=== PATIENT | female | born 1995 | race Caucasian/White ===

== ENCOUNTER 2020-03-30 04:25 | Emergency (ER) | payer OTHER, SELFPAY ==
--- NOTE | 2020-03-30 | ECG_ITS ---
Test Reason : CHEST PAIN Blood Pressure : / mmHG Vent. Rate : 097 BPM Atrial Rate : 097 BPM P-R Int : 130 ms QRS Dur : 092 ms QT Int : 356 ms P-R-T Axes : 081 086 045 degrees QTc Int : 452 ms Normal sinus rhythm Normal ECG No previous ECGs available Referred By: Viki Pascual Electronically Signed By:Mckay Loja
[2020-03-30 04:51] VITALS: BP 132/64; PULSE 87; RESP 15; TEMP 36.6; O2SAT 100
--- NOTE | 2020-03-30 04:56 | XR_ITS ---
EXAMINATION: XR CHEST CLINICAL INFORMATION: Chest pain COMPARISON: None TECHNIQUE: Frontal view of the chest was obtained. FINDINGS: The lungs are clear with no focal consolidation. No evidence of pneumothorax, pulmonary edema, or pleural effusions. The cardiomediastinal silhouette is unremarkable. No acute osseous findings. XR/XR chest 1V IMPRESSION: No acute cardiopulmonary findings.
--- NOTE | 2020-03-30 04:57 | ED.ABDPAIN ---
HPI - Abdominal Pain General Chief Complaint: Nausea/Vomiting/Diarrhea Stated Complaint: Chest pain/Vomiting Time Seen by Provider: 03/30/20 04:40 Source: patient Mode of arrival: ambulatory Limitations: no limitations History of Present Illness HPI narrative: 25 yo female with GERD - here with epigastric pain and burning into her chest with n/v states she has these episodes in the past with her GERD symptoms MD elicited complaint: abdominal pain Pertinent past history: gastritis Onset (ago): day(s) (2) Pain Consistency: constant Location: epigastric Severity: moderate Quality: burning Radiation: chest Migration to: no migration Exacerbating factors: eating Relieving factors: nothing Context: history of similar episodes Associated symptoms: nausea and vomiting Related Data Previous Rx's Medication Instructions Recorded ondansetron 4 mg PO Q8H PRN #20 tab 03/30/20 Allergies Allergy/AdvReac Type Severity Reaction Status Date / Time No Known Allergies Allergy Unverified 11/23/19 18:59 [No Known Allergies*] Review of Systems Review of Systems Constitutional : No Weight loss, No Fever, No Chills ENT/Mouth : No sore throat, No Rhinorrhea Eyes: No Swelling, No Redness Cardiovascular : No Chest Pain, No SOB, NoEdema Respiratory : No Cough, No Sputum, No Wheezing Gastrointestinal : Positive Nausea, Positive Vomiting, no Diarrhea, positive abdominal Pain, No Hematochezia, No Melena Genitourinary : No Dysuria, No Urinary Frequency, No Hematuria, No Urgency Musculoskeletal : No joint pain, No Myalgias, No Joint Swelling Skin : No Skin Lesions, No rash Neuro : No Weakness, No Numbness, No Dizziness, No Headache Psych : No Anxiety/Panic, No Depression Heme/Lymph: No Bruising, No Lymphadenopathy Endocrine : No Polyuria, No Polydipsia All other systems reviewed and are negative. Physical Exam Vital Signs: Vital Signs: Last Vital Signs Temp 97.9 F 03/30/20 04:51 Pulse 87 03/30/20 04:51 Resp 15 03/30/20 04:51 BP 132/64 03/30/20 04:51 Pulse Ox 100 03/30/20 04:51 Body Mass Index 20.0 Appearance: Alert. Oriented X3. No acute distress. Eyes: Pupils equal, round and reactive to light. ENT: Pharynx normal. Neck: Normal inspection. Neck supple. CVS: Normal heart rate and rhythm. Pulses normal. Respiratory: No respiratory distress. Breath sounds normal. Abdomen: Soft and mild epigastric ttp Skin: Skin warm and dry. Normal skin color. Normal skin turgor. Extremities: No lower extremity edema. No calf ttp Neuro: Oriented X 3. No motor deficit. No sensory deficit. Course Course Course Narrative: negative workup, feels better, able to tolerate PO, stable for DC MDM - Abdominal Pain MDM Narrative Medical decision making narrative: 25 yo female with two days of acid reflux burning in epigastric area and n/v states she suffers from GERD and has had these symptoms in the past, at this time will need labs, GI cocktail, cxr, EKG - troponin x 1, seems GI related low susp for ACS/PE Lab Data Result diagrams: 03/30/20 05:08 03/30/20 05:08 Labs: Lab Results 03/30/20 03/30/20 03/30/20 Range/Units 05:08 05:08 05:08 WBC 7.9 (4.8-10.8) X10*3/uL RBC 4.45 (4.20-5.50) X10*6/uL Hgb 13.7 (12.0-16.0) g/dl Hct 40.1 (37-47) % MCV 90.1 (80-98) fL MCH 30.8 (27.0-33.0) pg MCHC 34.2 (31.0-35.0) g/dl RDW 11.7 (11.0-16.0) % Plt Count 272 (160-400) X10*3/uL MPV 9.5 (9.4-12.3) fL Immature Gran % (Auto) 0.1 (0.0-0.4) % Neut % (Auto) 57.7 (45-73) % Lymph % (Auto) 33.3 (20-40) % [place] % (Auto) 8.2 (2-11) % Eos % (Auto) 0.3 (0-4) % Baso % (Auto) 0.4 (0-2) % Lymph # (Auto) 2.6 (1.2-4.9) X10*3/uL [place] # (Auto) 0.7 (0.1-1.2) X10*3/uL Eos # (Auto) 0.0 (0.0-0.4) X10*3/uL Baso # (Auto) 0.0 (0.0-0.2) X10*3/uL Abs Immat Gran (auto) 0.01 (0.00-0.03) X10*3/uL Absolute Neuts (auto) 4.6 (2.0-8.3) X10*3/uL Absolute Nucleated RBC 0.000 (0.0-0.012) X10*3/uL Nucleated RBC % (auto) 0.0 (0.0-0.2) /100WBC Hold Blue Top SEE NOTE Sodium 138 (135-145) mmol/L Potassium 3.8 (3.3-5.1) mmol/l Chloride 105 (96-108) mmol/L Carbon Dioxide 21 L (22-29) mmol/L Anion Gap 16 (12-20) BUN 9 (9-16) mg/dL Creatinine 0.67 (0.5-1.4) mg/dL Estim Creat Clear Calc 118.7 Estimated GFR > 60 Random Glucose 117 H (60-115) mg/dL Calcium 9.4 (8.4-10.2) mg/dL Magnesium 2.0 (1.6-2.6) mg/dL Total Bilirubin 0.6 (0.0-1.0) mg/dL Direct Bilirubin 0.3 (0.0-0.5) mg/dL AST 15 (5-31) U/L ALT 11 (0-31) U/L Alkaline Phosphatase 78 (39-117) U/L Troponin I High Sens (<3.5-17.0) ng/L Total Protein 8.0 (6.5-8.0) g/dL Albumin 4.6 (3.5-5.0) g/dL Lipase 25 (8-78) U/L Urine Color Urine Appearance Urine pH (5.0-8.0) Ur Specific [place] (1.005-1.025) Urine Protein (NEG-TRACE) MG/DL Urine Glucose (UA) (NEG) MG/DL Urine Ketones (NEG) MG/DL Urine Blood (NEG) Urine Nitrite (NEG) Ur Leukocyte Esterase (NEG) Urine Test (NEGATIVE) 03/30/20 03/30/20 Range/Units 05:08 05:08 WBC (4.8-10.8) X10*3/uL RBC (4.20-5.50) X10*6/uL Hgb (12.0-16.0) g/dl Hct (37-47) % MCV (80-98) fL MCH (27.0-33.0) pg MCHC (31.0-35.0) g/dl RDW (11.0-16.0) % Plt Count (160-400) X10*3/uL MPV (9.4-12.3) fL Immature Gran % (Auto) (0.0-0.4) % Neut % (Auto) (45-73) % Lymph % (Auto) (20-40) % [place] % (Auto) (2-11) % Eos % (Auto) (0-4) % Baso % (Auto) (0-2) % Lymph # (Auto) (1.2-4.9) X10*3/uL [place] # (Auto) (0.1-1.2) X10*3/uL Eos # (Auto) (0.0-0.4) X10*3/uL Baso # (Auto) (0.0-0.2) X10*3/uL Abs Immat Gran (auto) (0.00-0.03) X10*3/uL Absolute Neuts (auto) (2.0-8.3) X10*3/uL Absolute Nucleated RBC (0.0-0.012) X10*3/uL Nucleated RBC % (auto) (0.0-0.2) /100WBC Hold Blue Top Sodium (135-145) mmol/L Potassium (3.3-5.1) mmol/l Chloride (96-108) mmol/L Carbon Dioxide (22-29) mmol/L Anion Gap (12-20) BUN (9-16) mg/dL Creatinine (0.5-1.4) mg/dL Estim Creat Clear Calc Estimated GFR Random Glucose (60-115) mg/dL Calcium (8.4-10.2) mg/dL Magnesium (1.6-2.6) mg/dL Total Bilirubin (0.0-1.0) mg/dL Direct Bilirubin (0.0-0.5) mg/dL AST (5-31) U/L ALT (0-31) U/L Alkaline Phosphatase (39-117) U/L Troponin I High Sens < 3.5 (<3.5-17.0) ng/L Total Protein (6.5-8.0) g/dL Albumin (3.5-5.0) g/dL Lipase (8-78) U/L Urine Color YELLOW Urine Appearance CLEAR Urine pH 8.5 H (5.0-8.0) Ur Specific [place] 1.015 (1.005-1.025) Urine Protein NEG (NEG-TRACE) MG/DL Urine Glucose (UA) NEG (NEG) MG/DL Urine Ketones 40 (NEG) MG/DL Urine Blood NEG (NEG) Urine Nitrite NEG (NEG) Ur Leukocyte Esterase NEG (NEG) Urine Test NEGATIVE (NEGATIVE) ECG Data Attestation: I personally reviewed and interpreted this ECG as follows: ECG interpretation date: 03/30/20 ECG interpretation time: 04:58 Interpretation: Rate: 97 Rhythm: NSR [place]: normal Normal P waves. Normal JOSH. Normal QRS complex. ST T wave : normal no ADAM qTC: normal prior studies: no acute ischemia The study has been interpreted contemporaneously by me. . Discharge Plan Discharge Clinical Impression: Chronic GERD Gastritis Qualifiers: Gastritis type: unspecified gastritis Chronicity: acute Gastritis bleeding: without bleeding Qualified Code(s): K29.00 - Acute gastritis without bleeding Patient Disposition: Home, Self-Care Instructions: Gastritis (ED) Additional Instructions: return to ED for any worsening symptoms or concerns Prescriptions: New ondansetron 4 mg tablet,disintegrating 4 mg PO Q8H PRN (Reason: nausea and vomiting) Qty: 20 RF: 0 Referrals: Physician,Unknown [Primary Care Provider] - 3 days (if not better) Stand Alone Forms: Work/School Release Interventions: ED Discharge Assessment Last Done: 03/30/20 06:03 Print Language: Kinyarwanda [facility] Past Medical History Medical History (Updated 03/30/20 @ 05:57 by Viki Pascual DO) GERD (gastroesophageal reflux disease) No known health problems Surgical History No history of previous surgery Social History Social History Smoking Status: Never smoker Use of substances other than those prescribed or required for medical reasons: No Advance Directives: No Advance Directives Information Provided: No
[2020-03-30 05:14] LABS: Basophils Percent Auto 0.4 % (0-2); Eosinophils Percent Auto 0.3 % (0-4); Hematocrit 40.1 % (37-47); Hemoglobin 13.7 g/dl (12.0-16.0); Imm Gran Abs Auto 0.01 X10*3/uL (0.00-0.03); Imm Gran Pct Auto 0.1 % (0.0-0.4); Lymphocytes Absolute Auto 2.6 X10*3/uL (1.2-4.9); Lymphocytes Percent Auto 33.3 % (20-40); Mean Corpuscular HGB Conc 34.2 g/dl (31.0-35.0); Mean Corpuscular Hemoglobin 30.8 pg (27.0-33.0); Mean Corpuscular Volume 90.1 fL (80-98); Mean Platelet Volume 9.5 fL (9.4-12.3); Monocytes Absolute Auto 0.7 X10*3/uL (0.1-1.2); Monocytes Percent Auto 8.2 % (2-11); Neutrophils Absolute Auto 4.6 X10*3/uL (2.0-8.3); Neutrophils Percent Auto 57.7 % (45-73); Platelet Count 272 X10*3/uL (160-400); Red Blood Count 4.45 X10*6/uL (4.20-5.50); Red Cell Distribution Width 11.7 % (11.0-16.0); White Blood Count 7.9 X10*3/uL (4.8-10.8)
[2020-03-30 05:15] LABS: MANUAL DIFF FLAG NO
[2020-03-30 05:16] LABS: Appearance Urine CLEAR; Color Urine YELLOW; Glucose Urine UA NEG (NEG); Leukocyte Esterase Urine NEG (NEG); Nitrite Urine NEG (NEG); PH 8.5 (5.0-8.0); Specific Gravity - Urine 1.015 (1.005-1.025); UACC Culture Trigger NO; Urine Blood NEG (NEG); Urine Ketones 40 MG/DL (NEG); Urine Protein NEG (NEG-TRACE)
[2020-03-30 05:18] LABS: UPreg QC Valid YES; Urine Pregnancy NEGATIVE (NEGATIVE)
[2020-03-30] MEDS: Magnesium Hydrox/Alum Hydrox 30 ML ORAL.SUSP PO (05:30)
[2020-03-30] MEDS: Lidocaine HCl Viscous 2 % 15 ML SOLUTION MUCOUS MEM (05:30)
[2020-03-30 05:49] LABS: Alanine Aminotransferase 11 U/L (0-31); Albumin Level 4.6 g/dL (3.5-5.0); Alkaline Phosphatase 78 U/L (39-117); Anion Gap 16 (12-20); Aspartate Amino Transferase 15 U/L (5-31); Bilirubin Direct 0.3 mg/dL (0.0-0.5); Bilirubin Total 0.6 mg/dL (0.0-1.0); Blood Urea Nitrogen 9 mg/dL (9-16); Calcium 9.4 mg/dL (8.4-10.2); Carbon Dioxide 21 mmol/L (22-29); Chloride 105 mmol/L (96-108); Creatinine Clr Calc Pharmacy 118.7; Estimated Glomerular Filt Rate > 60; Glucose Random 117 mg/dL (60-115); Lipase 25 U/L (8-78); Potassium 3.8 mmol/l (3.3-5.1); Sodium 138 mmol/L (135-145)
[2020-03-30 05:53] LABS: Troponin-I High Sensitivity < 3.5 ng/L (<3.5-17.0)
== END 2020-03-30 06:18 | disposition home or self-care (01) ==
PROVIDERS: Emergency Provider Emergency Medicine
DX: K21.9 Gastro-esophageal reflux disease without esophagitis (principal); R10.13 Epigastric pain; R11.2 Nausea with vomiting, unspecified; K29.00 Acute gastritis without bleeding; Z79.899 Other long term (current) drug therapy
CPT/HCPCS: 36415; 71045; 80048; 80076; 81003; 81025; 83690; 83735; 84484; 85025; 93005; 99284

== ENCOUNTER 2020-04-01 09:48 | Outpatient (REF) | payer OTHER, SELFPAY ==
--- NOTE | 2020-04-01 | US_ITS ---
EXAMINATION: US ABDOMEN COMPLETE CLINICAL INFORMATION: Heartburn and nausea. COMPARISON: None TECHNIQUE: Real-time imaging of the abdominal viscera. FINDINGS: PANCREAS: Normal. ABDOMINAL AORTA: The proximal, mid, and distal segments are normal in caliber. INFERIOR VENA CAVA: Visualized portions are normal. LIVER: Normal. The liver is normal in size. The liver contour is normal. Parenchymal echogenicity is normal. No focal hepatic lesion. There is no intrahepatic biliary duct dilatation seen. GALLBLADDER: Normal. The gallbladder is physiologically distended without evidence of stones, sludge, polyps, wall thickening or pericholecystic fluid. COMMON BILE DUCT: Normal in caliber measuring 0.5 cm in diameter. RIGHT KIDNEY: Normal. No hydronephrosis. No renal calculi or focal parenchymal lesions. The kidney measures 10.7 cm in maximum dimension. LEFT KIDNEY: Normal. No hydronephrosis. No renal calculi or focal parenchymal lesions. The kidney measures 11.7 cm in maximum dimension. SPLEEN: Normal. The spleen measures 9.5 cm in maximum dimension. FREE FLUID: None. US/US abdomen complete IMPRESSION: Normal abdominal ultrasound.
== END 2020-04-01 09:49 | disposition home or self-care (01) ==
LOC: HO.US 09:48
PROVIDERS: PCP Internal Medicine Geriatric Medicine; Visit Provider Internal Medicine Geriatric Medicine
DX: R12 Heartburn (principal)
CPT/HCPCS: 76700

== ENCOUNTER 2020-04-25 12:48 | Outpatient (REF) | payer OTHER, SELFPAY ==
--- NOTE | ~2020-04-25 | US_ITS ---
EXAMINATION: US DIAGNOSTIC ULTRASOUND BREAST, RIGHT CLINICAL INFORMATION: 25-year-old with right breast pain outer aspect. No palpable mass. Not breast-feeding approximately 1 year ago. No known family history breast cancer. No prior breast imaging. No spontaneous nipple discharge. COMPARISON: None. TECHNIQUE: Ultrasound right breast is targeted to the area of clinical concern 8:00 through 11:00 position. Grayscale imaging and color Doppler are performed without and with harmonics. FINDINGS: There is no focal suspicious finding. There is no cystic or solid mass, architectural abnormality, duct ectasia, or edema in the soft tissue planes. Results are discussed with the patient at time of visit. US/US breast RT limited IMPRESSION: Normal study. ASSESSMENT: BI-RADS 1: Negative RECOMMENDATION: Patient's breast pain should be managed based on the clinical impression.
== END 2020-04-25 12:49 | disposition home or self-care (01) ==
LOC: HO.MAMMO 12:48
PROVIDERS: PCP Internal Medicine Geriatric Medicine; Visit Provider Internal Medicine Geriatric Medicine
DX: N64.4 Mastodynia (principal)
CPT/HCPCS: 76642

== ENCOUNTER 2022-03-25 21:14 | Emergency (ER) | payer OTHER, SELFPAY ==
--- NOTE | ~2022-03-25 | US_ITS ---
EXAMINATION: US OBSTETRICAL ULTRASOUND CLINICAL INFORMATION: Abdominal pain, bleeding. COMPARISON: Pelvic ultrasound 04/06/2016. LMP: 02/14/2022. Gestational age by maternal dates is 5 weeks and 5 days. Estimated date of delivery by maternal dates is 11/21/2022. TECHNIQUE: Ultrasound of the maternal pelvis is performed using transabdominal and transvaginal transducers. Transvaginal imaging is performed due to inadequate visualization transabdominally. M-mode Doppler is also performed. FINDINGS: There is a single intrauterine gestational sac with visible yolk sac and a pole. There is no significant subchorionic hemorrhage or hematoma. CRL (crown rump length): 0.3 cm (5 weeks and 6 days +/- 4 days). (estimated date of delivery): 11/20/2022 +/- 4 days. MATERNAL ADNEXA: The right maternal ovary measures 3.8 x 2.5 x 2.1 cm. There is a simple cyst measuring 1.3 x 2 x 1.5 cm, almost certainly benign, for which no imaging follow-up is recommended. The left maternal ovary measures 2.8 x 1.8 x 1.4 cm. There is no significant maternal adnexal mass. Small amount of free fluid. US/US OB pelvic and transvaginal IMPRESSION: 1. Single intrauterine gestation with ultrasound gestational age of 5 weeks and 6 days. A heart rate is not detected, likely due to early gestation. Recommend continued follow-up and correlation with quantitative hCG to ensure viability of the . 2. Estimated date of delivery is 11/20/2022 +/- 4 days. 3. No maternal adnexal mass.
[2022-03-25 21:26] VITALS: BP 133/71; PULSE 99; RESP 18; TEMP 36.8; O2SAT 99; BMI 23.9
--- NOTE | 2022-03-25 22:35 | ED_ITS ---
HPI - Female Genitourinary General Chief complaint: Vaginal Bleeding Stated complaint: ? bleeding today and pelvic pain Time Seen by Provider: 03/25/22 22:21 Source: patient Mode of arrival: ambulatory Limitations: no limitations History of Present Illness HPI Narrative: Patient comes to the emergency room complaining of vaginal spotting. Patient states that she is . Initially, patient was being treated for control with IM medication. Then, patient decided to switch to a transdermal patch. Patient states that she did not like how she was feeling, therefore she went to her provider and requested to be placed on IM injections again. Before they gave her the dose, a test was done and it was positive. Patient states that this would be her 4th , has 1 child at home, 1st 2 pregnancies resulted in spontaneous miscarriages. Patient states that today she noticed vaginal spotting. Patient states that if she is , she would like to continue with the . Also, patient complaining of foul-smelling vaginal discharge that she noted 3-4 days ago Related Data Previous Rx's Medication Instructions Recorded ondansetron 4 mg disintegrating 4 mg PO Q8H PRN nausea and 03/30/20 tablet vomiting #20 tabs Allergies Allergy/AdvReac Type Severity Reaction Status Date / Time No Known Allergies Allergy Unverified 11/23/19 18:59 [No Known Allergies*] Review of Systems Review of Systems: Constitutional : No Weight loss, No Fever, No Chills, No Night Sweats, No Fatigue, No Malaise ENT/Mouth : No Hearing loss, No Ear Pain, No Nasal Congestion, No Sinus Pain, No Hoarseness, No sore throat, No Rhinorrhea, No Swallowing Difficulty Eyes: No Eye Pain, No Swelling, No Redness, No Foreign Body, No Discharge, No Vision Changes Cardiovascular : No Chest Pain, No SOB, No Dyspnea on Exertion, No Orthopnea, No Edema, No Palpitations Respiratory : No Cough, No Sputum, No Wheezing, No Smoke Exposure, No Dyspnea Gastrointestinal : No Nausea, No Vomiting, No Diarrhea, No Constipation, No abdominal Pain, No Hematochezia, No Melena Genitourinary : Complaining of vaginal spotting, patient had a positive test 1 week ago, complaining of foul-smelling vaginal discharge, No Dysuria, No Urinary Frequency, No Hematuria, No Urinary Incontinence, No Urgency, No Flank Pain, No Urinary Flow Changes, No Hesitancy Musculoskeletal : No joint pain, No Myalgias, No Joint Swelling Skin : No Skin Lesions, No rash Neuro : No Weakness, No Numbness, No Paresthesias, No Loss of Consciousness, No Dizziness, No Headache Psych : No Anxiety/Panic, No Depression, No SI/HI/AH/VH, No Social Issues, Heme/Lymph: No Bruising, No Bleeding,No Lymphadenopathy Endocrine : No Polyuria, No Polydipsia, No Temperature Intolerance [facility], [facility] Past Medical History Medical History GERD (gastroesophageal reflux disease) No known health problems Surgical History No history of previous surgery Social History Social History Smoked in Last 30 Days: No Use of substances other than those prescribed or required for medical reasons: No Advance Directives: No Advance Directives Information Provided: No Patient : Yes Physical Exam Vital Signs: Vital Signs: Last Vital Signs Temp 98.2 F 03/25/22 21:26 Pulse 89 03/25/22 23:36 Resp 14 03/25/22 23:36 BP 109/58 L 03/25/22 23:36 Pulse Ox 100 03/25/22 23:36 O2 Del Method 03/25/22 21:26 BMI result Body Mass Index 23.9 Const: Other: Appearance: Alert. Oriented X3. No acute distress. Eyes: Pupils equal, round and reactive to light. ENT: Pharynx normal. Neck: Normal inspection. Neck supple. No lymph nodes noted. No crepitus CVS: Normal heart rate and rhythm. Pulses normal. Normal S1 and S2 Respiratory: No respiratory distress. Breath sounds normal. No Wheezing. No rales Abdomen: Soft and nontender. No rigidity. No distention. Skin: Skin warm and dry. Normal skin color. Normal skin turgor. Extremities: No lower extremity edema. No Lacerations. No Rash Neuro: Oriented X 3. No motor deficit. No sensory deficit. Moving all ext remities. No slurred speech. CN 2 through 12 grossly intact Psych: calm, cooperative, normal affect Course Course Course Narrative: All patient's labs are pending. Depending on the hCG level, patient may need a transvaginal ultrasound. Pelvic exam pending, set up pending -patient has moderate amount of blood in the vaginal vault. -hCG positive, 2156 -blood type A positive, no RhoGAM indicated -transpelvic and transvaginal OB ultrasound pending Medical Decision Making Medical Decision Making [facility] Narrative: -ultrasound shows a single intrauterine gestation with ultrasound gestational age of 5 weeks and 6 days with no heart rate likely due to an early gestation. -patient was given an outpatient lab form to get labs on March 28, lab will be open from 07:00 to 11:00 -patient instructed to follow-up with Dr. Shaw Differential Diagnosis Differential Diagnoses: The differential diagnosis associated with the presentation includes (Is threatened , miscarriage, menstrual.) Lab Data [facility] Lab Attestation statement: I reviewed the patient's lab results. 03/25/22 22:50 03/25/22 22:50 Labs: Lab Results 03/25/22 03/25/22 03/25/22 Range/Units 22:44 22:49 22:50 WBC 7.4 (4.8-10.8) X10*3/uL RBC 4.45 (4.20-5.50) X10*6/uL Hgb 13.5 (12.0-16.0) g/dl Hct 39.5 (37.0-47.0) % MCV 88.8 (80.0-98.0) fL MCH 30.3 (27.0-33.0) pg MCHC 34.2 (31.0-35.0) g/dl RDW 12.2 (11.0-16.0) % Plt Count 248 (160-400) X10*3/uL MPV 9.6 (9.4-12.3) fL Immature Gran % (Auto) 0.3 (0.0-0.4) % Neut % (Auto) 61.5 (45-73) % Lymph % (Auto) 29.0 (20-40) % [place] % (Auto) 7.8 (2-11) % Eos % (Auto) 0.7 (0-4) % Baso % (Auto) 0.7 (0-2) % Lymph # (Auto) 2.1 (1.2-4.9) X10*3/uL [place] # (Auto) 0.6 (0.1-1.2) X10*3/uL Eos # (Auto) 0.1 (0.0-0.4) X10*3/uL Baso # (Auto) 0.1 (0.0-0.2) X10*3/uL Abs Immat Gran (auto) 0.02 (0.00-0.03) X10*3/uL Absolute Neuts (auto) 4.6 (2.0-8.3) x10*3/uL Absolute Nucleated RBC 0.000 (0.0-0.012) X10*3/uL Nucleated RBC % (auto) 0.0 (0.0-0.2) /100WBC Sodium (135-145) mmol/L Potassium (3.3-5.1) mmol/L Chloride (96-108) mmol/L Carbon Dioxide (22-29) mmol/L Anion Gap (12-20) BUN (9-16) mg/dL Creatinine (0.5-1.4) mg/dL Estim Creat Clear Calc Estimated GFR Random Glucose (60-115) mg/dL Calcium (8.4-10.2) mg/dL Total Bilirubin (0.0-1.0) mg/dL Direct Bilirubin (0.0-0.5) mg/dL AST (5-31) U/L ALT (0-31) U/L Alkaline Phosphatase (39-117) U/L Total Protein (6.5-8.0) g/dL Albumin (3.5-5.0) g/dL Beta HCG, Quant mIU/mL Urine Color Yellow Urine Appearance Cloudy Urine pH 8.0 (5.0-9.0) Ur Specific [place] 1.010 (1.005-1.025) Urine Protein Negative (Neg-Trace) mg/dL Urine Glucose (UA) Negative (Negative) mg/dL Urine Ketones 15 (Negative) mg/dL Urine Blood Large (3+) H (Negative) Urine Nitrite Negative (Negative) Ur Leukocyte Esterase Trace H (Negative) Urine RBC 0-2 (0-2) /HPF Urine WBC 6-10 H (0-5) /HPF Ur Squamous Epith Cells 6-10 (0-2) /HPF Urine Bacteria None Seen (None Seen) Hyaline Casts 0-2 (0-2) /LPF Blood Type A Positive 03/25/22 Range/Units 22:50 WBC (4.8-10.8) X10*3/uL RBC (4.20-5.50) X10*6/uL Hgb (12.0-16.0) g/dl Hct (37.0-47.0) % MCV (80.0-98.0) fL MCH (27.0-33.0) pg MCHC (31.0-35.0) g/dl RDW (11.0-16.0) % Plt Count (160-400) X10*3/uL MPV (9.4-12.3) fL Immature Gran % (Auto) (0.0-0.4) % Neut % (Auto) (45-73) % Lymph % (Auto) (20-40) % [place] % (Auto) (2-11) % Eos % (Auto) (0-4) % Baso % (Auto) (0-2) % Lymph # (Auto) (1.2-4.9) X10*3/uL [place] # (Auto) (0.1-1.2) X10*3/uL Eos # (Auto) (0.0-0.4) X10*3/uL Baso # (Auto) (0.0-0.2) X10*3/uL Abs Immat Gran (auto) (0.00-0.03) X10*3/uL Absolute Neuts (auto) (2.0-8.3) x10*3/uL Absolute Nucleated RBC (0.0-0.012) X10*3/uL Nucleated RBC % (auto) (0.0-0.2) /100WBC Sodium 138 (135-145) mmol/L Potassium 3.4 (3.3-5.1) mmol/L Chloride 107 (96-108) mmol/L Carbon Dioxide 24 (22-29) mmol/L Anion Gap 10 L (12-20) BUN 7 L (9-16) mg/dL Creatinine 0.66 (0.5-1.4) mg/dL Estim Creat Clear Calc 106.8 Estimated GFR > 60 Random Glucose 108 (60-115) mg/dL Calcium 9.4 (8.4-10.2) mg/dL Total Bilirubin 0.4 (0.0-1.0) mg/dL Direct Bilirubin < 0.2 (0.0-0.5) mg/dL AST 16 (5-31) U/L ALT 14 (0-31) U/L Alkaline Phosphatase 73 (39-117) U/L Total Protein 7.5 (6.5-8.0) g/dL Albumin 4.4 (3.5-5.0) g/dL Beta HCG, Quant 2156 mIU/mL Urine Color Urine Appearance Urine pH (5.0-9.0) Ur Specific [place] (1.005-1.025) Urine Protein (Neg-Trace) mg/dL Urine Glucose (UA) (Negative) mg/dL Urine Ketones (Negative) mg/dL Urine Blood (Negative) Urine Nitrite (Negative) Ur Leukocyte Esterase (Negative) Urine RBC (0-2) /HPF Urine WBC (0-5) /HPF Ur Squamous Epith Cells (0-2) /HPF Urine Bacteria (None Seen) Hyaline Casts (0-2) /LPF Blood Type Radiology Impression Discussion of test interpretation with radiology: I have reviewed the radiologis t's reading. Radiologist Impression: COMPARISON:? Pelvic ultrasound 04/06/2016.? LMP: 02/14/2022. Gestational age by maternal dates is 5 weeks and 5 days. Estimated date of delivery by maternal dates is 11/21/2022. TECHNIQUE: Ultrasound of the maternal pelvis is performed using transabdominal and transvaginal transducers. Transvaginal imaging is performed due to inadequate visualization transabdominally. M-mode Doppler is also performed. ? FINDINGS: There is a single intrauterine gestational sac with visible yolk sac and a pole. There is no significant subchorionic hemorrhage or hematoma. CRL (crown rump length): ? 0.3 cm (5 weeks and 6 days +/- 4 days). (estimated date of delivery):? 11/20/2022 +/- 4 days. ? MATERNAL ADNEXA: ? ? The right maternal ovary measures 3.8 x 2.5 x 2.1 cm. There is a simple cyst measuring 1.3 x 2 x 1.5 cm, almost certainly benign, for which no imaging follow-up is recommended. The left maternal ovary measures 2.8 x 1.8 x 1.4 cm. There is no significant maternal adnexal mass. Small amount of free fluid. US/US OB pelvic and transvaginal IMPRESSION: 1. Single intrauterine gestation with ultrasound gestational age of? 5 weeks and 6 days. A heart rate is not detected, likely due to early gestation. Recommend continued follow-up and correlation with quantitative hCG to ensure viability of the . 2. Estimated date of delivery is 11/20/2022 +/- 4 days. 3. No maternal adnexal mass. Discharge Plan Discharge Clinical Impression: Threatened Patient Disposition: Home, Self-Care Instructions: Threatened Miscarriage (ED) Additional Instructions: Please return on March 28 to the main lab to get blood work, it will be open from 07:00 to 11:00. Then please follow-up with your primary care physician and with Dr. Shaw from [facility]. If you have any worsening or new symptoms, please return to the emergency room or call 911 Prescriptions: No Action ondansetron 4 mg tablet,disintegrating 4 mg PO Q8H PRN (Reason: nausea and vomiting) Qty: 20 0RF Referrals: Williams Shaw MD [Physician] - 03/30/22
[2022-03-25 22:58] LABS: MANUAL DIFF FLAG NO
[2022-03-25 22:59] LABS: Basophils Absolute Auto 0.1 X10*3/uL (0.0-0.2); Basophils Percent Auto 0.7 % (0-2); Eosinophils Absolute Auto 0.1 X10*3/uL (0.0-0.4); Eosinophils Percent Auto 0.7 % (0-4); Hematocrit 39.5 % (37.0-47.0); Hemoglobin 13.5 g/dl (12.0-16.0); Imm Gran Abs Auto 0.02 X10*3/uL (0.00-0.03); Imm Gran Pct Auto 0.3 % (0.0-0.4); Lymphocytes Absolute Auto 2.1 X10*3/uL (1.2-4.9); Mean Corpuscular HGB Conc 34.2 g/dl (31.0-35.0); Mean Corpuscular Hemoglobin 30.3 pg (27.0-33.0); Mean Corpuscular Volume 88.8 fL (80.0-98.0); Mean Platelet Volume 9.6 fL (9.4-12.3); Monocytes Absolute Auto 0.6 X10*3/uL (0.1-1.2); Monocytes Percent Auto 7.8 % (2-11); Neutrophils Absolute Auto 4.6 x10*3/uL (2.0-8.3); Neutrophils Percent Auto 61.5 % (45-73); Platelet Count 248 X10*3/uL (160-400); Red Blood Count 4.45 X10*6/uL (4.20-5.50); Red Cell Distribution Width 12.2 % (11.0-16.0); White Blood Count 7.4 X10*3/uL (4.8-10.8)
[2022-03-25 23:00] LABS: Appearance Urine Cloudy; Color Urine Yellow; Glucose Urine UA Negative (Negative); Leukocyte Esterase Urine Trace (Negative); Nitrite Urine Negative (Negative); UMIC TRIGGER UACC YES; Urine Blood Large (3+) (Negative); Urine Ketones 15 mg/dL (Negative); Urine Protein Negative (Neg-Trace)
[2022-03-25 23:11] LABS: Bacteria Urine None Seen (None Seen); Hyaline Casts Urine 0-2 /LPF (0-2); RBC Urine 0-2 /HPF (0-2); UACC Culture Trigger YES
[2022-03-25 23:21] LABS: Alanine Aminotransferase 14 U/L (0-31); Albumin Level 4.4 g/dL (3.5-5.0); Alkaline Phosphatase 73 U/L (39-117); Anion Gap 10 (12-20); Aspartate Amino Transferase 16 U/L (5-31); Bilirubin Direct < 0.2 mg/dL (0.0-0.5); Bilirubin Total 0.4 mg/dL (0.0-1.0); Blood Urea Nitrogen 7 mg/dL (9-16); Calcium 9.4 mg/dL (8.4-10.2); Carbon Dioxide 24 mmol/L (22-29); Chloride 107 mmol/L (96-108); Creatinine Clr Calc Pharmacy 106.8; Estimated Glomerular Filt Rate > 60; Glucose Random 108 mg/dL (60-115); Potassium 3.4 mmol/L (3.3-5.1); Sodium 138 mmol/L (135-145); Total Protein 7.5 g/dL (6.5-8.0)
[2022-03-25 23:22] LABS: HCG Quantitative 2156 mIU/mL
--- NOTE | 2022-03-25 23:23 | PC.NURSE ---
this rn present with dr espino during pelvic exam. ordered swabbed collected and sent down to lab. pt resting comfortably on stretcher at this time
[2022-03-25 23:36] VITALS: BP 109/58; PULSE 89; RESP 14; O2SAT 100
--- NOTE | 2022-03-26 00:15 | PC.NURSE ---
pt partner at bedside at this time. pt awaiting US
[2022-03-26 02:10] VITALS: BP 113/71; PULSE 80; RESP 18; O2SAT 100
--- NOTE | 2022-03-26 02:10 | PC.NURSE ---
[email or web address] services utilized during discharge. partner present at bedside. VSS. skin pwd. discharge packet and work note provided to pt. pt verbalized understanding of discharge plan
[2022-03-26 06:10] LABS: CT PCR NOT DETECTED (Not Detect.); NG PCR NOT DETECTED (Not Detect.)
[2022-03-26 13:50] LABS: BV Int Neg Control Negative (Negative); BV Int Pos Control Positive (Positive)
== END 2022-03-26 02:13 | disposition home or self-care (01) ==
PROVIDERS: Emergency Provider Emergency Medicine; PCP Internal Medicine Geriatric Medicine
DX: O20.0 Threatened abortion (principal); Z3A.01 Less than 8 weeks gestation of pregnancy
CPT/HCPCS: 0353U; 36415; 76801; 76817; 80048; 80076; 81001; 84702; 85025; 86900; 86901; 87086; 87480; 87510; 87660; 99284

== ENCOUNTER 2022-03-28 08:17 | Outpatient (REF) | payer OTHER, SELFPAY ==
[2022-03-28 08:45] LABS: MANUAL DIFF FLAG NO
[2022-03-28 09:20] LABS: Basophils Percent Auto 0.5 % (0-2); Eosinophils Absolute Auto 0.2 X10*3/uL (0.0-0.4); Eosinophils Percent Auto 3.1 % (0-4); Hematocrit 40.4 % (37.0-47.0); Hemoglobin 13.4 g/dl (12.0-16.0); Imm Gran Abs Auto 0.02 X10*3/uL (0.00-0.03); Imm Gran Pct Auto 0.3 % (0.0-0.4); Lymphocytes Absolute Auto 3.3 X10*3/uL (1.2-4.9); Lymphocytes Percent Auto 44.4 % (20-40); Mean Corpuscular HGB Conc 33.2 g/dl (31.0-35.0); Mean Corpuscular Hemoglobin 30.3 pg (27.0-33.0); Mean Corpuscular Volume 91.4 fL (80.0-98.0); Mean Platelet Volume 10.3 fL (9.4-12.3); Monocytes Absolute Auto 0.6 X10*3/uL (0.1-1.2); Monocytes Percent Auto 8.3 % (2-11); Neutrophils Absolute Auto 3.2 x10*3/uL (2.0-8.3); Neutrophils Percent Auto 43.4 % (45-73); Platelet Count 237 X10*3/uL (160-400); Red Blood Count 4.42 X10*6/uL (4.20-5.50); Red Cell Distribution Width 12.3 % (11.0-16.0); White Blood Count 7.3 X10*3/uL (4.8-10.8)
[2022-03-28 09:57] LABS: HCG Quantitative 515 mIU/mL
== END 2022-03-28 08:18 | disposition home or self-care (01) ==
LOC: HO.LAB 08:17
PROVIDERS: Referring Provider Obstetrics & Gynecology; Visit Provider Emergency Medicine
DX: O20.0 Threatened abortion (principal)
CPT/HCPCS: 36415; 84702; 85025

== ENCOUNTER 2024-09-04 10:26 | Outpatient (REF) | payer MEDICAID, SELFPAY ==
--- OUTSIDE RECORDS SUMMARY | 2024-09-04 11:09 | XMS_ITS | Clinical Summary ---
Author Organization [employer] Address [address] [facility] [address] [place] [address] Care Team Providers Care Poison Information Specialist Name Role Phone Name, Diego BARAHONA Primary Care Provider [phone] Abiola Omer Unavailable Unavailable Allergies No known active allergies Medications * This document contains information received from the source organization and may not represent a complete record from that organization. 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 AUGUSTINE signed. 2020: ASCUS 2020: NIL 08/2021: LGSIL -> ECC benign Plan: repeat pap in 1 year - Pap done at [facility] 08/26/22, records received and reviewed, NILM HPV negative Last Assessment & Plan: Pap done at [facility] 08/26/22, records received and reviewed, NILM HPV negative Migraine without status migrainosus, not intract able 06/13/2018 Uses Estonian as primary spoken language 03/23/19 18 Overview (01/10/2024): Last Assessment & Plan: Visit done with interpretor. Last Assessment & Plan: Claims Adjustor present, in-person, today. Pterygium 02/10/2017 Resolved Problems Problem Noted Date Diagnosed Date Resolved Date Normal intrauterine , antepartum 02/22/2023 08/29/2024 Overview (01/10/2024): CNM OB-CMI score: 0 [02/22/2023] Group PN care? No, Sp Sp screening plans cfDNA Baby ASA? NI Rh pos GC/Chlam neg PAP per pt, normal in 2022 at [facility]. Need records Flu 12/2022 COVID-19 vaccinated x3 Hgb * GTT * Repeat RPR * Tdap * EPDS * PPBC * GBS * Infant Feeding Plan * Last Assessment & Plan: Richelle is a 28 y.o. at 27w1d doing well. Denies VB/LOF/Ctxs. + FM. Doing 28 week labs today, needs to go back to the lab to be drawn. Is continuing to have some low back and quick low abdominal pressure. Has a support belt, it is not really helping. Discussed massage, stretches - will send some through portal. Discussed expectations for movement counting. CNM OB-CMI score: 0 [02/22/2023] Group PN care? No, Sp Sp screening plans cfDNA Baby ASA? NI Rh pos GC/Chlam neg PAP per pt, normal in 2022 at [facility]. Need records Flu 12/2022 COVID-19 vaccinated x3 Hgb 12.4 GTT 101 Repeat RPR neg Tdap 08/09/2023 EPDS 2 PPBC - Depo Provera - would like to wait for 6 week visit. GBS NEG Infant Feeding Plan * Last Assessment & Plan: Patient doing well, denies VB, LOF, DFM, regular ctx. Reviewed elective IOL vs. Awaiting spontaneous labor/late term IOL. R/B/A reviewed (incendiary powder mixer used for entire counseling), methods of cervical ripening/IOL discussed. Patient expressed desire for elective IOL at 39 weeks, scheduled for 10/04 @ 630 PM, patient aware of date/time and that elective IOL may be rescheduled based on acuity of childbirth center. Warning signs/symptoms reviewed. Gastritis 02/22/2023 08/29/2024 Overview (01/10/2024): Patient takes omeprazole 40 mg daily. Patient takes omeprazole 40 mg daily. Last Assessment & Plan: Hasn't been taking omprazole during as gastritis symptoms improved. Is starting to notice bad heartburn for the past couple of weeks. Pepcid ordered. Disc tums PRN and foods to avoid. Blurring of visual image 02/18/202209/2023 Pain in finger 02/18/2022 07/13/2023 Paresthesia of hand 02/18/2022 07/13/19 History of 2019 novel cummings virus disease (COVID-19) 10/07/2019 08/29/2024 Encounters Date Type Department Care Team Description 08/29/2024 2:00 PM EDT Office Visit [facility] [address] [place] [id number] Name, MD Diego PE (physical exam), routine (Primary Dx); Screening examination for STI; Screening for diabetes mellitus; Screening for cholesterol level 08/29/2024 Travel 08/28/2024 Travel 08/28/2024 Telephone [facility] [address] [place] [address] Zeinab De Luna MA chart prep 08/21/2024 Patient Outreach [facility] [address] [place] [address] Diego Arauz MD Pre-visit Planning (SDOH unable to reach LVM) 08/16/2024 Telephone [facility] [address] [place] [address] Diego Arauz MD Care Management (C3CM follow up call) 07/19/2024 Telephone [facility] [address] [place] [address] Diego Arauz MD Care Management ([facility] follow up call) 06/21/[address] [phone] Diego Arauz MD Care Management ([facility] follow up call) from Last 3 Months Immunizations Immunization Administration Dates Next Due Influenza Injectable Quadriv alant Preservative Free IIV4 MDCK 03/11/2020 Influenza injectable quadriv alent IIV4 with preservative 01/16/2019,12/12/2013 Influenza injectable quadriv alent preservative free 01/18/2023,11/17/2021,12/02/2020,2020,02/01/2017 Influenza, seasonal, injecta ble, preservative free 01/10/2024 Pfizer Covid-19 Vaccine 12+ 04/14/2021,,07/08/2020 Tdap 01/16/2019,02/08/2017 Family History Medical History Relation Name Comments Diabetes Father Relation Name Status Comments Father Social History Tobacco Use Types Packs/Day Years Used Date Smoking Tobacco: Never Smokeless Tobacco: Never Tobacco Cessation:Counseling Given: Not Answered Alcohol Use Standard Drinks/Week Comments Never 0 (1 standard drink = 0.6 oz pur e alcohol) Depression Answer Date Recorded Patient Health Questionnaire-9 Score 3 08/29/2024 Patient Health Questionnaire-9 Score 3 08/29/2024 Last PHQ-9: Questionnaire Data Not on file 0 08/29/2024 Housing Stability Answer Date Recorded What is your housing situation today? I have quita sing 08/29/[address] you li ve. Do you have problems with any of the following? None of the above 08/29/2024 Food Insecurity Answer Date Recorded Within the past 12 months, y ou worried that your food would run out before you got money to buy more: Never True 08/29/2024 Within the past 12 months,th e food you bought just didn't last and you didn't have enough money to get more: Never True Transportation Answer Date Recorded In the past 12 months, has l ack of transportation kept you from medical appts, meetings, work or from getting things needed for daily living? No 08/29/2024 Utilities Answer Date Recorded In the past 12 months, has t he electric, gas, oil or water company threatened to shut off services in your home? No 08/29/2024 Depression Answer Date Recorded Patient Health Questionnaire-2 Score 0 08/29/2024 Internet Access Answer Date Recorded Internet Access Q1 Yes 08/29/2024 Internet Access Q2 Not on file 08/29/2024 Comments No Sex and Gender Information Value Date Recorded Sex Assigned at Female 01/05/2022 10:30 AM EDT Legal Sex Female 10:30 AM EDT Gender Identity Female 01/05/2022 10:30 AM EDT Sexual Orientation Straight 01/05/2022 10 :30 AM EDT Occupation Industry Job Start Date Job End Date [employer] Not on file Not on file Not on gissel e Last Filed Vital Signs Vital Sign Reading Time Taken Comments Blood Pressure 114/62 08/29/2024 2:06 PM EDT Pulse 79 08/29/2024 2:06 PM EDT Temperature 36.8 C (98.3 F) 08/29/2024 2:06 PM EDT Respiratory Rate 21 08/29/2024 2:06 PM EDT Oxygen Saturation 99% 08/29/2024 2:06 PM EDT Inhaled Oxygen Concentration - - Weight 60.3 kg (133 lb) 08/29/2024 2:06 PM EDT Height 165.1 cm (5' 5 ) 08/29/2024 2:06 PM EDT Body Mass Index 22.13 08/29/2024 2:06 PM EDT Plan of Treatment Health Maintenance Due Date Last Done Comments Disability Screening 1996 Family Planning (PISQ) 02/26/2011 Hepatitis B Vaccines (1 of 3 - 19+ 3-dose series) 02/26/2015 Pap Smear 02/26/2017 COVID-19 Vaccine (4 - 2023- season) 2023 04/14/2021, 07/29/2020, 07/08/2020 Dental Oral Exam 06/05/2024 12/06/2023, , 2020, Additional history exists Dental Prophylaxis 06/05/2024 12/06/2023, 08/26/2021 Dental X-Ray: Full Mouth 08/27/2024 08/26/2021, 05/07 Dental X-Ray: Bitewings 12/06/2024 12/06/19 24, 08/26/2021, 2020, Additional history exists Alcohol/Substance Use Screening 08/29/2025 08/29/2024 Depression Screening 08/29/2025 08/29/2024, 08/30/19 25 SDOH Screening 08/29/2025 08/29/2024 Tobacco Screening 08/29/2025 08/29/2024 DTaP/Tdap/Td Vaccines (4 - Td or Tdap) 08/08/2033 08/09/2023, 01/16/2019, 02/08/2017 Zoster Vaccines (1 of 2) 02/26/2046 RSV Patients and Patients Aged 60 years or older (1 - 1-dose 75+ series) 02/26/2071 Hepatitis C Screening Completed 12/01/2021, 022 HIV Screening Completed 03/15/2023, 11/07, 11/17/2021 Influenza Vaccine Completed 01/10/2024, , 11/17/2021, Additional history exists HIB Vaccines Aged Out No longer eligi ble based on patient's age to complete this topic HPV Vaccines Aged Out No longer eligi ble based on patient's age to complete this topic Hepatitis A Vaccines Aged Out No long er eligible based on patient's age to complete this topic IPV Vaccines Aged Out No longer eligi ble based on patient's age to complete this topic Meningococcal B Vaccine Aged Out No l onger eligible based on patient's age to complete this topic Meningococcal Vaccine Aged Out No gene chikis eligible based on patient's age to complete this topic Pneumococcal Vaccine: Pediatrics (0 to 5 Years) and At-Risk Patients (6 to 49) Years Aged Out No longer eligible based on patient's age to complete this topic RSV under 20 months Aged Out No longe r eligible based on patient's age to complete this topic Rotavirus Vaccines Aged Out No longer eligible based on patient's age to complete this topic Procedures Procedure Name Priority Date/Time Associated Diagnosis Comments PROPHYLAXIS - ADULT Routine 12/06/2023 3 :00 PM EDT Dental calculus Dental plaque BITEWINGS - 4 RADIOGRAPHIC IMAGES Routine 12/06/2023 3:00 PM EDT PERIODIC ORAL EVALUATION - ESTABLISHED PATIENT Routine 12/06/2023 3:00 PM EDT Dental calculus Dental plaque Encounter for dental examination Dental caries ZZZ HISTORICAL HEPATITIS C AB W/REFL TO HCV RNA, QN, PCR Routine 12/01/2021 3:00 PM EDT HIV 1/2 ANTIGEN/ANTIBODY, FOURTH GENERATION W/RFL Routine 12/01/2021 3:00 PM EDT INTRAORAL - COMPLETE SERIES OF RADIOGRAPHIC IMAGES Routine 08/26/2021 12:00 AM EDT from Last 3 Months or Most Recently Relevant to Health Maintenance Results * HEPATITIS C AB W/REFL TO HCV RNA, QN, PCR (12/01/2021 3:00 PM EDT) HEPATITIS C ANTIBODY NON-REACT DAVI NON-REACT DAVI [facility] INDEX 0.12 <1.00 [facility] Comment: HCV antibody was non-reactive. There is no laboratory evidence of HCV infection. In most cases, no further action is required. However, if recent HCV exposure is suspected, a test for HCV RNA (test code 22483) is suggested. For additional information please refer to http://education.Crystalplex/faq/RUS05t8 (This link is being provided for informational/ educational purposes only.) 12/01/2021 3:00 PM EDT us Diego Name HISTORICAL/NON ORDERABLE LABS Fi nal Result Performing Organization Address [facility]/ZIP Co de Phone Number [facility] [address] * HIV 1/2 ANTIGEN/ANTIBODY,FOURTH GENERATION W/RFL (12/01/2021 3:00 PM EDT) HIV-1/2 ANTIGEN AND ANTIBODIES, 4TH GENERATION W/ REFLEX NON-REACT DAVI NON-REACT DAVI [facility] Comment: HIV-1 antigen and HIV-1/HIV-2 antibodies were not detected. There is no laboratory evidence of HIV infection. PLEASE NOTE: This information has been disclosed to you from records whose confidentiality may be protected by state law. If your state requires such protection, then the state law prohibits you from making any further disclosure of the information without the specific written consent of the person to whom it pertains, or as otherwise permitted by law. A general authorization for the release of medical or other information is NOT sufficient for this purpose. For additional information please refer to http://education.Crystalplex/faq/FRH621 (This link is being provided for informational/ educational purposes only.) The performance of this assay has not been clinically validated in patients less than 2 years old. 12/01/2021 3:00 PM EDT us Diego Arauz MD LAB BLOOD ORDERABLES Final Resul t Performing Organization Address [facility] Co de Phone Number [facility] [address] from Last 3 Months or Most Recently Relevant to Health Maintenance Insurance [employer] ST[place] ADULT * Guarantor: Richelle Schroeder Account Type Relation to Patient Date of Phone Billing Address Dental Self Care Teams Poison Information Specialist Relationship Specialty Start Date End Date Name, MD Diego [address] [place] [id number] PCP - General Family Medicine 11/06/15 Abiola Omer Health Navigator Financial Counseling and Assistance Services 12/01/23 Kathy Weldon Toolroom Checker 06/07/23
[2024-09-04 12:03] LABS: Alanine Aminotransferase 18 U/L (0-31); Albumin Level 4.9 g/dL (3.5-5.0); Alkaline Phosphatase 76 U/L (39-117); Anion Gap 13 (12-20); Aspartate Amino Transferase 21 U/L (5-31); Bilirubin Total 0.4 mg/dL (0.0-1.0); Blood Urea Nitrogen 10 mg/dL (9-16); Calcium 9.3 mg/dL (8.4-10.2); Carbon Dioxide 22 mmol/L (22-29); Chloride 109 mmol/L (96-108); Cholesterol 136 mg/dL (<200); Estimated Glomerular Filt Rate > 60; Glucose Random 92 mg/dL (60-115); HDL Cholesterol 41 mg/dL (>40); LDL Cholesterol Calculated 84 mg/dL (<100); Potassium 4.1 mmol/L (3.3-5.1); Sodium 140 mmol/L (135-145); Total Protein 7.9 g/dL (6.5-8.0); Triglycerides 55 mg/dL (<150)
[2024-09-04 12:12] LABS: HIV AB/AG Nonreactive (Nonreactive); HIV Num 1 0.06 S/CO (0.00-0.99); Hepatitis B Surface Antigen Negative (Negative); ~Hepatitis B Surface Antibody NONREACTIVE (Nonreactive)
[2024-09-04 18:55] LABS: CT PCR Urine NOT DETECTED (Not Detect.); NG PCR Urine NOT DETECTED (Not Detect.)
[2024-09-06 21:44] LABS: HCV Log PCR <1.18 NOT DETECTED Log IU/mL (NOT DETECTED); HepC Viral Load <15 NOT DETECTED IU/mL (NOT DETECTED)
[2024-09-07 09:08] LABS: RPR Rapid Plasma Reagin NON-REACTIVE (NON-REACTIVE)
== END 2024-09-04 10:27 | disposition home or self-care (01) ==
LOC: HO.HHCL 10:26
PROVIDERS: PCP Internal Medicine Geriatric Medicine; Visit Provider Internal Medicine Geriatric Medicine
DX: Z13.1 Encounter for screening for diabetes mellitus (principal); Z11.3 Encounter for screening for infections with a predominantly sexual mode of transmission; Z13.220 Encounter for screening for lipoid disorders
CPT/HCPCS: 36415; 80053; 80061; 86592; 86706; 87340; 87389; 87491; 87522; 87591